=== PATIENT | male | born 1995 | race Caucasian/White ===

== ENCOUNTER 2024-05-08 21:11 | Observation (INO) | payer OTHER ==
[2024-05-08] MEDS ORDERED: Acetaminophen 325 MG TAB PO PRN (23:14)
[2024-05-08] MEDS ORDERED: Promethazine HCl 25 MG/ML VIAL IM PRN (23:14)
[2024-05-08] MEDS ORDERED: Ondansetron PF 4 MG/2 ML Vial SLOW IVP PRN (23:14)
[2024-05-08] MEDS ORDERED: HYDROcodone/Acetaminophen 5/325 mg Tablet PO PRN (23:14)
[2024-05-08] MEDS ORDERED: Morphine 4 MG/ML VIAL SLOW IVP PRN (23:14)
[2024-05-08] MEDS ORDERED: Milk Of Magnesia 30 ML UDCUP PO PRN (23:14)
[2024-05-08] MEDS ORDERED: [UNRECOGNIZED DRUG - REMARK] FS PRN (23:15)
[2024-05-08] MEDS ORDERED: TETANUS AND DIPHTHERIA TOX/PF 0.5 ML DISP.SYRIN IM SCH (23:30)
[2024-05-09] MEDS: TETANUS, DIPHTHERIA TOX,ADULT (TDVAX) 0.5 ML VIAL IM ONE (03:00)
[2024-05-09 03:02] VITALS: BMI 23.5
[2024-05-09 06:12] LABS: #Basophils 0.06 10x3/uL (0.0-0.2); %Basophils 0.8 % (0.0-1.0); %Eosinophils 3.1 % (0.0-10.0); %Lymphocytes 35.3 % (21.0-51.0); %Monocytes 10.6 % (0.0-10.0); %Neutrophils 50.1 % (42.0-75.0); Hemoglobin 14.3 g/dL (14.0-18.0); Mean Corpuscular Volume 85.2 fL (78.0-98.0); Mean Platelet Volume 9.1 fL (7.4-10.4); Platelet Count 393 10x3/uL (130-400); RBC Distribution Width 12.4 % (11.5-14.5); Red Blood Cell (RBC) Count 4.93 mill/uL (4.70-6.10)
[2024-05-09] MEDS: Aspirin 81 mg Enteric Coated Tablet PO SCH (09:13)
[2024-05-09] MEDS: traMADol HCl 50 MG TAB PO PRN (09:17)
[2024-05-09] MEDS ORDERED: Mineral Oil Sterile 10 ML VIAL ONE ×2 (15:25→15:29)
[2024-05-09] MEDS ORDERED: Bupivacaine 0.25% HCL 30 ML VIAL ONE (15:25)
[2024-05-09] MEDS ORDERED: Bacitracin Zinc Ointment 30 gm TUBE ONE (15:25)
[2024-05-09] MEDS ORDERED: Thrombin 5000 UNITS/5 ML VIAL ONE (15:25)
[2024-05-09] MEDS ORDERED: Bupivacaine PF 0.5% 30 ML VIAL ONE (15:29)
[2024-05-09] MEDS ORDERED: LevoFLOXacin D5W 500 mg (100 mL) BAG ONE (15:32)
[2024-05-09] MEDS ORDERED: fentaNYL PF 100 MCG/2 ML SYRINGE ONE ×2 (16:05→16:35)
[2024-05-09] MEDS ORDERED: PROPOFOL 20 ML ONE ×2 (16:05→16:36)
[2024-05-09] MEDS ORDERED: Midazolam HCl 2 mg/2 ml Vial ONE (16:06)
[2024-05-09] MEDS ORDERED: Dexamethasone 4 mg/ml Vial ONE (16:06)
[2024-05-09] MEDS ORDERED: Ondansetron PF 4 MG/2 ML Vial ONE (16:06)
[2024-05-09] MEDS ORDERED: Ketorolac Tromethamine 30 MG (1 mL) VIAL ONE ×2 (16:06→18:07)
[2024-05-09] MEDS ORDERED: Lidocaine 1% PF 5 ML VIAL ONE (16:06)
[2024-05-09] MEDS ORDERED: Clindamycin/D5W 900 mg/50 ml Premix Bag ONE (16:20)
[2024-05-09] MEDS ORDERED: Dexmedetomidine 200 MCG/2 ML VIAL ONE (16:24)
[2024-05-09] MEDS ORDERED: Vancomycin 1 GM VIAL ONE (16:55)
[2024-05-09] MEDS ORDERED: HYDROmorphone 2 MG/ML VIAL SLOW IVP PRN (18:04)
[2024-05-09] MEDS ORDERED: PACU-Morphine 4MG/ML VIAL SLOW IVP PRN (18:04)
[2024-05-09] MEDS ORDERED: Morphine Sulfate 2 MG/ML SYRINGE SLOW IVP PRN (18:04)
[2024-05-09] MEDS ORDERED: Ondansetron HCl/PF 4 MG/2 ML Vial IVP PRN (18:04)
[2024-05-09] MEDS ORDERED: Promethazine HCl 25 MG/ML VIAL IM PRN (18:04)
[2024-05-09 19:44] VITALS: BP 127/72; TEMP 97.2
== END 2024-05-09 20:33 | disposition home or self-care (01) ==
LOC: SURG B 21:11
PROVIDERS: ADMIT Orthopaedic Surgery Hand Surgery; ATTEND Orthopaedic Surgery Hand Surgery
PROC: 0HRFX73 Replacement of Right Hand Skin with Autologous Tissue Substitute, Full Thickness, External Approach (ICD-10-PCS; principal; 2024-05-09)
PROC: 0PBT0ZZ Excision of Right Finger Phalanx, Open Approach (ICD-10-PCS; 2024-05-09)
DX: S61.001A Unspecified open wound of right thumb without damage to nail, initial encounter (principal); I10 Essential (primary) hypertension; K21.9 Gastro-esophageal reflux disease without esophagitis; J45.909 Unspecified asthma, uncomplicated; M19.90 Unspecified osteoarthritis, unspecified site; F17.200 Nicotine dependence, unspecified, uncomplicated; F12.90 Cannabis use, unspecified, uncomplicated; Z98.890 Other specified postprocedural states; Z88.0 Allergy status to penicillin; Z79.82 Long term (current) use of aspirin; X58.XXXA Exposure to other specified factors, initial encounter
CPT/HCPCS: 36415; 85025; A6258; G0378; J0665; J1100; J1885; J1956; J2250; J2405; J2704; J3370; J3490